=== PATIENT | male | born 1955 | race Caucasian/White ===

== ENCOUNTER 2016-03-04 08:41 | Emergency (ER) | payer BC ==
[~2016-03-04] VITALS: Ht 175.3 cm; Wt 104.3 kg
--- NOTE | ~2016-03-04 | EKG ---
[address] [address] ELECTROCARDIOGRAM REPORT Name: ALISON LEWIS Room #: DEP Nawaf#: [id number] Admission: 03/04/16 Attend Phys: Discharge: 03/04/16 Date of : 59 Report #: [id number] THIS REPORT FOR: //name// [facility] ED Test Date: 2016-03-04 Test Time: 09:17:28 Pat Name: ALISON LEWIS Department: Room: Gender: [employer] Accountant: [place]INGS : 1955 Requested By: Afsaneh Stein Order Number: [id number] MD: Constantin Francisco Measurements Intervals [place] Rate: 71 P: 28 TX: 159 QRS: 7 QRSD: 107 T: 34 QT: 447 QTc: 486 Interpretive Statements Sinus rhythm No previous ECG available for comparison Electronically Signed On 03-04-2016 14:55:57 [employer] by Constantin Francisco [email or web address] <ELECTRONICALLY SIGNED> By: Constantin Francisco MD 03/04/16 1455 0917 6 Constantin Francisco MD /EPI
[2016-03-04] MEDS ORDERED: BAYER CHEWABLE81 MG PO (09:05)
[2016-03-04 09:25] LABS: HEMATOCRIT 44.9 % (42.0-52.0); HEMOGLOBIN 15.6 gm/dL (14.0-18.0); MCH 30.9 pg (26.0-34.0); MCHC 34.7 % (28.0-37.0); MCV 89.1 fL (80.0-100.0); PLATELET COUNT 180 thou/uL (150-400); RBC 5.03 mil/uL (4.50-6.00); RDW 13.8 % (10.5-14.5); WBC 11.8 thou/uL (4.0-11.0)
[2016-03-04 09:26] LABS: MANUAL DIFF YES
[2016-03-04 09:30] LABS: ANION GAP 6 mmol/L (7-16); BUN 20 mg/dL (7-18); CALCIUM 9.1 mg/dL (8.5-10.1); CHLORIDE 103 mmol/L (98-107); CO2 31 mmol/L (21-32); CREATININE 1.1 mg/dL (0.6-1.3); GLUCOSE 127 mg/dL (70-99); POTASSIUM 3.9 mmol/L (3.5-5.1); SODIUM 140 mmol/L (136-145)
[2016-03-04] MEDS ORDERED: ASPIRIN325 PO (09:37)
[2016-03-04 09:39] LABS: ALBUMIN 4.1 g/dL (3.4-5.0); ALKALINE PHOSPHATASE 81 U/L (46-116); SGOT 20 U/L (15-37); SGPT 35 U/L (30-65); TOTAL BILIRUBIN 0.8 mg/dL (<0.1-1.0); TOTAL PROTEIN 7.5 g/dL (6.4-8.2); TROPONIN-I < 0.04 ng/mL (<0.04-0.07)
[2016-03-04 10:01] LABS: ANISOCYTOSIS SLIGHT; TOTAL CELL COUNT 100
[2016-03-04 10:32] LABS: URINE BILIRUBIN NEGATIVE (Negative); URINE BLOOD NEGATIVE (Negative); URINE COLOR YELLOW; URINE GLUCOSE-RANDOM* NEGATIVE (Negative); URINE KETONES NEGATIVE (Negative); URINE LEUKOCYTES-REFLEX NEGATIVE (Negative); URINE PROTEIN (DIPSTICK) TRACE (Negative); URINE SPECIFIC GRAVITY 1.025 (1.003-1.035); URINE UROBILINOGEN 0.2 E.U./dl (0.2-1.0)
[2016-03-04] MEDS ORDERED: ZANTAC 150MG T150 MG PO (10:33)
[2016-03-04] MEDS ORDERED: PHENERGAN 25 MG25 M1 PO (10:33)
[2016-03-04 11:22] VITALS: BP 187/99
== END 2016-03-04 11:23 | disposition home or self-care (01) ==
LOC: ER 08:41
PROVIDERS: Physician Assistant
DX: R10.13 Epigastric pain (principal); R11.2 Nausea with vomiting, unspecified